=== PATIENT | female | born 1985 | race Caucasian/White ===

== ENCOUNTER 2016-07-20 21:33 | Emergency (ER) | payer MEDICARE, OTHER ==
--- NOTE | ~2016-07-20 | CT71 ---
[facility] A Service [facility] RADIOLOGY TEXT RESULTS PATIENT: JIM REED LOCATION: SED : 85 UNIT #: [id number] AGE: [address]: Barrett Lilly MD SEX: F ORDER DR: [id number] [place] [id number] E MR#: [id number] Acc #: [id number] NAME: JIM REED. : 1985 SEX: F STUDY DATE/TIME: 07/20/2016 21:14 UNIT: SED ROOM: STUDY DESCRIPTION: CT Head Wo Contrast Attending Physician: Barrett Lilly M.D. Ordering Physician: Barrett Lilly M.D. Primary Care Physician: Jimmy Wang M.D. MEDICAL IMAGING REPORT This report is preliminary unless electronic signature is present. EXAM Head CT without contrast. DATE OF EXAM 07/20/2016 HISTORY Confusion. Disoriented. Right facial and eye droop with numbness beginning tonight 20 minutes prior to arrival in the emergency department. TECHNIQUE NOTE: This CT exam was performed with one or more of the following radiation dose reduction techniques: automatic exposure control, adjustment of mA and/or kV according to patient size, and iterative reconstruction. FINDINGS Axial noncontrast images were obtained from the skull base to the vertex. Ventricular size and configuration are normal. There is no evidence of acute infarct or hemorrhage. There are no extra-axial fluid collections. No mass lesion or mass effect is seen. There are no skull fractures. IMPRESSION Normal noncontrast head CT. Dictated by... Karlos Mayorga M.D. [facility] A Service of [facility] RADIOLOGY TEXT RESULTS PATIENT: JIM REED LOCATION: SED : 85 UNIT #: [id number] AGE: [address]: Barrett Lilly MD SEX: F ORDER DR: THIS IS AN ELECTRONICALLY VERIFIED REPORT Karlos Mayorga M.D. at 07/22/2016 2:20 PM TOBI/pili TD: 07/21/2016 16:04 JOB #: [id number] MEDICAL IMAGING REPORT
[~2016-07-20 21:33] MED LIST: ANTIVERT PO; BUSPAR PO; DIFLUCAN100 MG PO; FOLIC ACID; FOLIC ACID PO; IBUPROFEN PO; KLONOPIN PO; LEXAPRO PO; LOPID600 MG; LORTAB 5/500 TA1 TA1 PO; METFORMIN HCL500 M1 PO; NAPROXEN PO; NO MEDICATIONS; PHENERGAN25 M1 PO; PRENATAL1 TA1; PRENATAL1 TA1 PO; PROMETHAZINE HC25 MG PO; PROVERA PO; REQUIP1 MG PO; SEROQUEL PO; ZOFRAN ODT4 MG PO; ZOLOFT
== END 2016-07-20 21:54 | disposition home or self-care (01) ==
LOC: SED 21:33
DX: O99.352 Diseases of the nervous system complicating pregnancy, second trimester (principal); G51.0 Bell's palsy; Q05.9 Spina bifida, unspecified; Z90.89 Acquired absence of other organs; Z98.890 Other specified postprocedural states
CPT/HCPCS: 70450; 99284

== ENCOUNTER 2016-12-03 07:41 | Inpatient (IN) | payer MEDICARE, OTHER ==
[~2016-12-03] VITALS: Ht 170.2 cm; Wt 137.0 kg
--- NOTE | ~2016-12-03 | A ---
[facility] Nutrition Therapy DATE: 12/04/16 Patient: JIM REED Physician: ELIZABETH Address: [address] [facility] Room/Bed: [address] [place] [address], Zip: [place] [address] Admit Date: 12/03/16 Date of : 85 Height: 5 7 Weight: 297 135.17 NUTRITIONAL ASSESSMENT: REASON: 1 nutrition risk point re: /lactating + high BMI documentation 31 y/o female admitted for possible sepsis PMH: depression, self-harm risk, spina bifida, morbid obesity Anthropometrics: ht: 5'7" wt: 297# (135 kg) BMI 46 Labs: Na+ 133, K+ 3.2, Glu 146, BUN 6, Ca++ 8.0, Alb 3.4 Meds: Rocephin, Protonix IV, Lovenox, Dextrose 5%, NaCl I/O & Bowel function: 2455/3. BM 12/02 Skin Integrity: no issues, no edema Diet: Regular Assessment: Chart reviewed, events noted. Pt seen for 1 nutrition risk point re: pregancy/lactating. The pt has had a recent childbirth and is at this time. RD international logistics analyst visited pt at bedside. The pt is currently "pumping and dumping" per MD instructions, due to the antibiotic medications she is taking. She is feeding the baby formula provided by the hospital (baby in room). RD international logistics analyst provided written and verbal diet education regarding increased calorie and protein needs for , as well as taking a multivitamin. Pt reported no questions at this time. RD will remain available. Dx: Obesity class III r/t diet, lifestyle AEB BMI of 46. Intervention: 1. Regular diet. 2. Healthy diet for education Monitoring, Evaluation and Goals: 1. Weight; promote gradual weight loss 2. Oral intake; consume adequate/balanced meals w/no c/o n/v/d Recommendations: 1. Recommend changing current diet to healthy heart to promote gradual weight loss towards a healthy BMI (19.0-25.0). 2. Encourage adequate intake of well-balanced diet per information given to [facility] Nutrition Therapy DATE: 12/04/16 Patient: JIM REED Physician: ELIZABETH Address: [address] [facility] Room/Bed: [facility] [facility], Zip: [place] [address] Admit Date: 12/03/16 Date of : 85 Height: 5 7 Weight: 297 135.17 patient. 3. MVI + minerals for patient while admitted. RD will f/u per protocol as pt is at mild nutritional risk. Respectfully, INES ORDONEZ, Volumetric Weigher Sonal Allison MS, RD, LD [employer] [facility] cc: client file
--- NOTE | ~2016-12-03 | CR63 ---
[facility] A Service of [facility] & [facility] RADIOLOGY TEXT RESULTS PATIENT: JIM REED LOCATION: SED : 85 UNIT #: [id number] AGE: [address]: Geoffrey Forbes MD SEX: F ORDER DR: [id number] [address] [address] [id number] E MR#: [id number] Acc #: [id number] NAME: JIM REED. : 1985 SEX: F STUDY DATE/TIME: 12/03/2016 8:26 UNIT: SED ROOM: STUDY DESCRIPTION: CR Chest 2 View Attending Physician: Geoffrey Forbes M.D. Ordering Physician: Geoffrey Forbes M.D. Primary Care Physician: Jimmy Wang M.D. MEDICAL IMAGING REPORT This report is preliminary unless electronic signature is present. EXAM Chest 12/03/2016 [facility] HISTORY 31-year-old woman, sore throat, cough, elevated temperature, 103 degrees this a.m. COMPARISON: Chest 03/22/2012 FINDINGS Two-view chest demonstrates normal stable heart size. Hilar structures and mediastinal contours are preserved. Bilateral lungs are expanded and clear. Costophrenic angles are preserved. IMPRESSION Negative stable chest. No acute finding. Dictated by... Justin Alexander M.D. THIS IS AN ELECTRONICALLY VERIFIED REPORT Justin Alexander M.D. at 12/03/2016 1:48 PM OSVALDO/iftikhar TD: 12/03/2016 13:18 JOB #: [id number] MEDICAL IMAGING REPORT Page 1 of 1
--- NOTE | ~2016-12-03 | CO ---
Unit #: [id number] #: [id number] Patient: JIM REED [id number] [address] [address] [id number] I MR#: [id number] NAME: JIM REED. ROOM: 563 Age: 31 Sex: F Admission Date: 12/03/2016 : 1985 Attending Physician: Alfreda Hyatt M.D. Primary Care Physician: Jimmy Wang M.D. Consultation Date: 12/04/2016 CONSULTATION REPORT REASON FOR CONSULTATION High fever. HISTORY OF PRESENT ILLNESS The patient is a 31-year-old female, who is 3 weeks , had gestational diabetes, admitted with fever for the last 3 to 4 days up to 103, had some chills, some nausea. No vomiting or diarrhea. Took some Tylenol without any relief. Also started having some pain in the right ear with some muffling of the sound and pain in the right side of the neck on to the right mandible. Also had some nasal congestion. No cough congestion, chest pain, shortness of breath, headaches or dizziness. She was admitted and started on Rocephin and vancomycin. Infectious Disease consultation is requested. PAST MEDICAL HISTORY 1. Spina bifida occulta, mild. 2. Tonsillectomy. 3. LEEP procedure. 4. 3 weeks. SOCIAL HISTORY Noncontributory. FAMILY HISTORY Noncontributory. ALLERGIES No known drug allergies. CURRENT MEDICATIONS Reviewed. Antibiotics include Rocephin and vancomycin. PHYSICAL EXAMINATION GENERAL: Sitting up comfortable, feeling a little bit better. VITAL SIGNS: Temperature 98.4, T-max 103 upon admission, pulse 114, respirations 18, blood pressure 120/56. HEENT: Remarkable for tender right submandibular lymphadenopathy. Throat; she did have some congestion on the right side. Right ear external auditory canal was congested and tympanic membrane also looked congestive without any evidence of perforation. NECK: Supple. CHEST: Clear to auscultation. HEART: Normal S1, S2. ABDOMEN: Soft, nontender. Unit #: [id number] #: [id number] Patient: JIM REED EXTREMITIES: Shows no edema. DIAGNOSTIC STUDIES IMAGING STUDIES: Chest x-ray is negative for acute changes. LABORATORY RESULTS: BUN 10, creatinine 0.7. LFTs normal. Lactic acid 2. WBC 12.2, hemoglobin 12.9, platelets 204. [place] screen and strep screen negative. Urinalysis unremarkable. Cultures are pending. ASSESSMENT 1. Right external otitis. 2. Possible right otitis media. 3. Fever secondary to above. PLAN At this time, I would go ahead and discontinue vancomycin as the MRSA is unlikely. Continue with Rocephin. She does have some diarrhea. Stool has been ordered. We will follow up on that. Further recommendation depending upon the course. I would like to thank Dr. Hyatt for asking us to participate in the care of this patient. We will follow this patient along with you. Dictated by... Kyrie Ch TD: 12/06/2016 01:12 JOB #: [id number] CONSULTATION REPORT Page 1 of 1 X Jacoby Rico MD X CONSULTATION REPORT
--- NOTE | ~2016-12-03 | CT114 ---
[facility] A Service of [facility] RADIOLOGY TEXT RESULTS PATIENT: JIM REED LOCATION: [facility] 5607-11 : 85 UNIT #: [id number] AGE: [address]: Alfreda Hyatt MD SEX: F ORDER DR: [id number] [facility] [address] [facility]. [place], [place] [address] [id number] I MR#: [id number] Acc #: [id number] NAME: JIM REED. : 1985 SEX: F STUDY DATE/TIME: 12/08/2016 16:49 UNIT: [facility] ROOM: [facility] STUDY DESCRIPTION: CT Soft Tissue Neck W Cont Attending Physician: Alfreda Hyatt M.D. Ordering Physician: Alfreda Hyatt M.D. Primary Care Physician: Jimmy Wnag M.D. MEDICAL IMAGING REPORT This report is preliminary unless electronic signature is present EXAM CT neck with contrast INDICATIONS Sore throat particularly on the right since 12/03/2016. Bilateral neck pain. PROCEDURE Contrast-enhanced CT of the neck. This CT exam was performed with one or more of the following radiation dose reduction techniques: Automatic exposure control, adjustment of mA and/or kV according to patient size, and iterative reconstruction. COMPARISON None. FINDINGS Diffuse prominence of the adenoids and lingual tonsil tissues. Prominent cervical lymph nodes in both the right and left neck. Upper cervical node on the right measures 2.4 cm and an upper cervical node on the left measures 3.5 cm. No drainable fluid collection is seen. The parotid, submandibular glands, thyroid gland unremarkable. Included lung apices are clear. No aggressive appearing bone lesion. There is mucosal thickening in the maxillary sinuses and ethmoid air cells. IMPRESSION Bilateral cervical adenopathy, with prominence of the adenoids and lingual tonsil soft tissues. Findings may be reactive. Cannot exclude the possibility of lymphoma. Correlate with clinical presentation and clinical suspicion. Dictated by... [facility] A Service [facility] RADIOLOGY TEXT RESULTS PATIENT: JIM REED LOCATION: [facility] : 85 UNIT #: [id number] AGE: [address]: Alfreda Hyatt MD SEX: F ORDER DR: Jese Wen M.D. THIS IS AN ELECTRONICALLY VERIFIED REPORT Jese Wen M.D. at 12/11/2016 5:01 PM EED/psc TD: 12/09/2016 19:42 JOB #: [id number] MEDICAL IMAGING REPORT Page 1 of 1 COPY
--- NOTE | ~2016-12-03 | DS ---
Unit #: [id number] #: [id number] Patient: ANDRE REED [id number] [address] [place], [place] [address] [id number] I MR#: [id number] NAME: ANDRE REED. ROOM: 563 Age: 31 Sex: F Admission Date: 12/03/2016 : 1985 Discharge Date: 12/11/2016 Attending Physician: Alfreda Hyatt M.D. Primary Care Physician: Jimmy Wang M.D. DISCHARGE SUMMARY FINAL DIAGNOSES 1. High fever which is resolved. 2. Right otitis media. 3. Clostridium difficile infection. 4. Cervical adenopathy, most likely reactive. 5. Skin rash which is resolved. 6. Possible viral syndrome. DISCHARGE MEDICATIONS 1. Vancomycin 250 mg q.6 hourly until 12/20/16. 2. Tylenol 650 q.4 p.r.n. 3. Claritin 10 mg daily. 4. Flonase nasal spray b.i.d. 5. Normal saline nasal spray q.i.d. 6. vitamin, continue home dose. 7. Folic acid, continue home dose. CONSULTATION DURING HOSPITALIZATION Dr. Rico - Infectious Disease. HOSPITAL COURSE Ms. Andre Reed is a 31-year-old, morbidly obese female, who was admitted to [facility] on 12/03/16 with high fever. The patient delivered three weeks prior to coming to hospital. Patient's T-max was 103. Dr. Rico from infectious disease was consulted. Patient was started on IV Rocephin for right otitis media and right external otitis. Patient continued to have fever. Had an episode of diarrhea. Stool was sent. Patient's C. diff is positive. Patient was started on vancomycin. Patient had a rash with Flagyl. That is why it was changed to vancomycin. Patient's antibiotic has been discontinued. Patient is stable at this time. Her fever has resolved and she is feeling much better. Patient is being discharged home in stable condition. EXAMINATION ON DISCHARGE Blood pressure is 124/84, respiratory rate 18, pulse is 78, temperature 98.2. Patient is afebrile for more than 48 hours. HEAD is normocephalic. CHEST has fair air entry. CVS - S1, S2 positive. Regular rhythm. EXTREMITIES - negative edema. DISCHARGE INSTRUCTIONS 1. Patient is being discharged home. 2. Medication as per Med Rec. 3. Follow up with primary care provider in one week. Unit #: [id number] #: [id number] Patient: ANDRE REED 4. Patient has been advised to avoid nursing until antibiotics have been completed. She verbalizes understanding. Dictated by... Alfreda Hyatt M.D. Tenzin TD: 12/12/2016 11:47 JOB #: [id number] DISCHARGE SUMMARY Page 1 of 1 X Alfreda Hyatt MD X DISCHARGE SUMMARY
--- NOTE | ~2016-12-03 | HP ---
Unit #: [id number] #: [id number] Patient: ANDRE REED [id number] [address] [place], [place] [address] [id number] I MR#: [id number] NAME: ANDRE REED. ROOM: 563 Age: 31 Sex: F Admission Date: 12/03/2016 : 1985 Attending Physician: Alfreda Hyatt M.D. Primary Care Physician: Jimmy Wang M.D. HISTORY AND PHYSICAL CHIEF COMPLAINT High fever. HISTORY OF PRESENT ILLNESS Ms. Andre Reed is a 31-year-old female who just had delivery about three weeks ago but started having fever a few days ago and it went up to 103. She was not able to make it go down, even with Tylenol and other medications. She also had right ear tinnitus and some strange kind of sensation with decreased hearing. 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 She also had sore throat and neck swelling, mostly on the right side and also complains of nasal congestion, postnasal drip, and cough with some sputum production. According to her, this right neck, sore throat, and ear pain is pretty bad. She does not complain of nausea and vomiting. Does not complain of abdominal pain. She does not complain of any constipation, diarrhea. No complaint of dysuria. She does have some polyuria. No hematuria. PAST MEDICAL HISTORY History of spina bifida occulta, mild. PAST SURGICAL HISTORY 1. History of tonsillectomy. 2. LEEP procedure. HOME MEDICATIONS 1. vitamin. 2. Folic acid. ALLERGIES No known drug allergies. FAMILY HISTORY Not significant. SOCIAL HISTORY No history of smoking, alcohol, or drug abuse. PHYSICAL EXAMINATION GENERAL: Patient is being evaluated in room 563. VITAL SIGNS: Blood pressure 108/57, respiratory rate 18, pulse 105, temperature 98.3, T-max 103, oxygen saturation 98%. HEENT: Head is normocephalic. Eye movements are normal. Postnasal drainage is seen. Erythema of the throat is seen. Right ear erythematous ear canal and dullness of the tympanic membrane is seen. Unit #: [id number] #: [id number] Patient: ANDRE REED CHEST: Fair air entry. No additional sounds. CARDIOVASCULAR: S1, S2 positive. Regular rhythm. Tachycardia. ABDOMEN: Soft, no tenderness. EXTREMITIES: Negative edema. CENTRAL NERVOUS SYSTEM: The patient is awake, alert. Oriented x3. No focal neurological deficit. DIAGNOSTIC STUDIES LABORATORY: Strep throat is negative. WBC 12.2, hemoglobin 12.9, hematocrit 38.8, and platelet count of 204,000. Urinalysis shows 1+ bacteria. Lactic acid is 2. Sodium 134, potassium 4.3, chloride 104, sugar 159, BUN 10, creatinine 0.7. Liver enzymes are stable. Strep A was done which is negative. Infectious mononucleosis test was negative. WBC this morning is 11.3. IMAGING: Chest x-ray, PA and lateral, shows negative stable chest. No acute finding. ASSESSMENT The patient is being admitted to telemetry unit with a diagnosis of: 1. Possible sepsis. 2. Right otitis media. 3. Pharyngitis. 4. High fever. 5. Urinary tract infection. 6. Allergic rhinitis. PLAN Plan is admit to telemetry unit. Dr. Rico from infectious disease is being consulted. Patient is being started on IV Rocephin 1 g q.24 hours. She received 2 g of Rocephin in the ER. IV vancomycin was started, which has been discontinued. Protonix is being started. D5 normal saline at 125 mL/hr is being started. Deep venous thrombosis prophylaxis will be done. Normal saline nasal spray two squirts each nostril q.i.d., Flonase nasal spray twice a day, Claritin 10 mg daily. Patient does have hypokalemia. Potassium will be replaced. Plan of care has been discussed with patient at length. Please refer to progress note for further orders. Dictated by Kyrie Sotomayor TD: 12/04/2016 13:52 JOB #: [id number] Unit #: [id number] #: [id number] Patient: ANDRE REED HISTORY AND PHYSICAL Page 1 of 1 X Alfreda Hyatt MD HISTORY AND PHYSICAL
--- NOTE | ~2016-12-03 | CT71 ---
[facility] A Service of [facility] & [facility] RADIOLOGY TEXT RESULTS PATIENT: JIM REED LOCATION: [facility] 5607-11 : 85 UNIT #: [id number] AGE: [address]: Alfreda Hyatt MD SEX: F ORDER DR: [id number] [facility] [address] [place], [place] [address] [id number] I MR#: [id number] Acc #: [id number] NAME: JIM REED. : 1985 SEX: F STUDY DATE/TIME: 12/10/2016 3:48 UNIT: [facility] ROOM: [facility] STUDY DESCRIPTION: CT Head Wo Contrast Attending Physician: Alfreda Hyatt M.D. Ordering Physician: Jj Rodriguez M.D. Primary Care Physician: Jimmy Wang M.D. MEDICAL IMAGING REPORT This report is preliminary unless electronic signature is present EXAM CT head without contrast DATE: 12/10/2016 at 03:48 HISTORY 31-year-old female 3 weeks . Woke up with extreme right side head and neck pain this morning. Admitted 12/03/2016 with fever ad otitis. . COMPARISON CT head without contrast 07/20/2016. The CT exam was performed with one or more of the following radiation dose reduction techniques: automatic exposure control, adjustment of mA and/or kV according to patient size, and iterative reconstruction. FINDINGS Mild ethmoid sinus mucosal thickening. Mastoid air cells are clear. No acute calvarial abnormality. No acute intracranial hemorrhage, mass lesion, mass effect or midline shift is seen and there is no CT evidence of acute or evolving infarct. Ventricular configuration is normal. IMPRESSION Normal noncontrast CT head. Dictated by... Tila Trejo M.D. THIS IS AN ELECTRONICALLY VERIFIED REPORT [facility] A Service of [facility] & [facility] RADIOLOGY TEXT RESULTS PATIENT: JIM REED LOCATION: [facility] 5607-11 : [birth year] UNIT #: [id number] AGE: [address]: Alfreda Hyatt MD SEX: F ORDER DR: Tila Trejo M.D. at 12/10/2016 9:58 PM Barney/iftikhar TD: 12/10/2016 11:19 JOB #: [id number] MEDICAL IMAGING REPORT Page 1 of 1 COPY
[2016-12-03 08:29] LABS: BASOPHIL# 0.1 X10e3 (0-0.3); BASOPHIL% 0.5 % (0-2.5); EOSINOPHIL# 0.1 X10e3 (0-0.7); EOSINOPHIL% 0.8 % (0.0-7.0); HEMATOCRIT 38.8 % (35.0-45.0); HEMOGLOBIN 12.9 gm/dL (12.0-16.0); LYMPHOCYTE# 0.9 X10e3 (1.0-3.5); LYMPHOCYTE% 7.4 % (17.0-45.0); MEAN CELL VOLUME 79.8 FL (83-96); MEAN CORPUSCULAR HEMOGLOBIN 26.6 PG (28-34); MEAN CORPUSCULAR HGB CONC 33.3 g/dL (30-36); MONOCYTE# 0.6 X10e3 (0-1.0); MONOCYTE% 5.1 % (3.0-12.0); NEUTROPHIL# 10.5 X10e3 (1.5-7.1); NEUTROPHIL% 86.2 % (40-75); PLATELET COUNT 204 X10e3 (140-420); RED BLOOD COUNT 4.87 X10e (3.90-5.30); RED CELL DISTRIBUTION WIDTH 15.3 % (11.0-15.5); WHITE BLOOD COUNT 12.2 X10e3 (4.0-10.5)
[2016-12-03 08:36] LABS: DIFF IND NO
[2016-12-03 08:37] LABS: URINE SOURCE CLEAN CATCH
[2016-12-03 08:38] LABS: URINE APPEARANCE CLEAR; URINE BILIRUBIN NEG (NEG); URINE BLOOD 2+ (NEG); URINE COLOR YELLOW; URINE GLUCOSE NEG (NORM); URINE KETONE NEG (NEG); URINE LEUKOCYTE ESTERASE 1+ (NEG); URINE NITRATE NEG (NEG); URINE PH 5.5 (5-8); URINE PROTEIN NEG (NEG); URINE UROBILINOGEN 0.2 MG/DL (NORM)
[2016-12-03 08:39] LABS: MICRO INDICATED? YES
[2016-12-03 08:50] LABS: ALBUMIN SERUM 3.4 g/dL (3.5-5.0); BILIRUBIN, DIRECT 0.1 mg/dL (0.0-0.2); BILIRUBIN,INDIRECT 0.7 mg/dL (0.0-0.9); BILIRUBIN,TOTAL 0.8 mg/dL (0.2-2.0); BUN/CREATININE RATIO 14.28; CALCIUM SERUM 8.5 mg/dL (8.4-10.2); CREATININE SERUM 0.7 mg/dL (0.6-1.4); GLOM FILT RATE Estimated 115.5 mL/min (>60); POTASSIUM 4.3 mmol/L (3.5-5.1); PROTEIN TOTAL SERUM 7.3 g/dL (6.0-8.3)
[2016-12-03 08:58] LABS: CULTURE INDICATED? YES; URINE BACTERIA 1+ (NEG); URINE SQUAMOUS EPITHELIAL CELL OCCAS /[HPF]
[2016-12-03] MEDS ORDERED: REGLAN10 MG PO (16:21)
[2016-12-04 06:46] LABS: HEMATOCRIT 35.5 % (35.0-45.0); HEMOGLOBIN 11.2 gm/dL (12.0-16.0); MEAN CELL VOLUME 79.8 FL (83-96); MEAN CORPUSCULAR HEMOGLOBIN 25.2 PG (28-34); MEAN CORPUSCULAR HGB CONC 31.6 g/dL (30-36); MEAN PLATELET VOLUME 9.1 FL (6.5-11.5); RED BLOOD COUNT 4.45 X10e (3.90-5.30); RED CELL DISTRIBUTION WIDTH 15.5 % (11.0-15.5); WHITE BLOOD COUNT 11.3 X10e3 (4.0-10.5)
[2016-12-04 07:13] LABS: CREATININE SERUM 0.6 mg/dL (0.6-1.4); GLOM FILT RATE Estimated 121.5 mL/min (>60); POTASSIUM 3.2 mmol/L (3.5-5.1)
[2016-12-05 05:38] LABS: HEMATOCRIT 35.9 % (35.0-45.0); HEMOGLOBIN 11.8 gm/dL (12.0-16.0); MEAN CORPUSCULAR HEMOGLOBIN 26.3 PG (28-34); MEAN CORPUSCULAR HGB CONC 32.8 g/dL (30-36); MEAN PLATELET VOLUME 8.9 FL (6.5-11.5); RED BLOOD COUNT 4.49 X10e (3.90-5.30); RED CELL DISTRIBUTION WIDTH 15.7 % (11.0-15.5)
[2016-12-05 06:20] LABS: CALCIUM SERUM 8.4 mg/dL (8.4-10.2); CARBON DIOXIDE 24 mmol/L (22-31); CHLORIDE 103 mmol/L (100-111); CREATININE SERUM 0.6 mg/dL (0.6-1.4); GLOM FILT RATE Estimated 121.5 mL/min (>60); GLUCOSE FASTING 117 mg/dL (70-110); POTASSIUM 4.2 mmol/L (3.5-5.1); SODIUM 135 mmol/L (135-145)
[2016-12-05 06:23] LABS: BLOOD UREA NITROGEN <5 mg/dL (9-23); BUN/CREATININE RATIO 8.33
[2016-12-07 11:11] LABS: HEMATOCRIT 31.2 % (35.0-45.0); HEMOGLOBIN 10.2 gm/dL (12.0-16.0); MEAN CELL VOLUME 79.7 FL (83-96); MEAN CORPUSCULAR HEMOGLOBIN 26.1 PG (28-34); MEAN CORPUSCULAR HGB CONC 32.8 g/dL (30-36); MEAN PLATELET VOLUME 8.2 FL (6.5-11.5); RED BLOOD COUNT 3.92 X10e (3.90-5.30); RED CELL DISTRIBUTION WIDTH 15.5 % (11.0-15.5); WHITE BLOOD COUNT 6.8 X10e3 (4.0-10.5)
[2016-12-07 15:56] LABS: INFLUENZA A NEG (NEG); INFLUENZA B NEG (NEG)
[2016-12-08 07:11] LABS: HEMATOCRIT 32.2 % (35.0-45.0); HEMOGLOBIN 10.3 gm/dL (12.0-16.0); MEAN CELL VOLUME 80.5 FL (83-96); MEAN CORPUSCULAR HEMOGLOBIN 25.7 PG (28-34); MEAN CORPUSCULAR HGB CONC 31.9 g/dL (30-36); RED CELL DISTRIBUTION WIDTH 15.5 % (11.0-15.5); WHITE BLOOD COUNT 7.7 X10e3 (4.0-10.5)
[2016-12-08 07:59] LABS: CALCIUM SERUM 7.7 mg/dL (8.4-10.2); CREATININE SERUM 0.5 mg/dL (0.6-1.4); POTASSIUM 3.3 mmol/L (3.5-5.1)
[2016-12-08 12:10] LABS: ALBUMIN SERUM 2.3 g/dL (3.5-5.0); CALCIUM SERUM 7.8 mg/dL (8.4-10.2); CARBON DIOXIDE 26 mmol/L (22-31); CHLORIDE 104 mmol/L (100-111); CREATININE SERUM 0.5 mg/dL (0.6-1.4); GLUCOSE FASTING 115 mg/dL (70-110); PHOSPHOROUS 3.8 mg/dL (2.5-4.6); POTASSIUM 3.6 mmol/L (3.5-5.1); SODIUM 137 mmol/L (135-145)
[2016-12-08 12:11] LABS: BLOOD UREA NITROGEN <5 mg/dL (9-23)
[2016-12-09 06:27] LABS: HEMOGLOBIN 11.1 gm/dL (12.0-16.0); MEAN CELL VOLUME 81.3 FL (83-96); MEAN CORPUSCULAR HEMOGLOBIN 25.7 PG (28-34); MEAN CORPUSCULAR HGB CONC 31.7 g/dL (30-36); RED BLOOD COUNT 4.31 X10e (3.90-5.30); RED CELL DISTRIBUTION WIDTH 15.3 % (11.0-15.5); WHITE BLOOD COUNT 7.8 X10e3 (4.0-10.5)
[2016-12-09 07:57] LABS: ALBUMIN SERUM 2.7 g/dL (3.5-5.0); BILIRUBIN,TOTAL 0.8 mg/dL (0.2-2.0); CALCIUM SERUM 8.3 mg/dL (8.4-10.2); CREATININE SERUM 0.4 mg/dL (0.6-1.4); GLOM FILT RATE Estimated 138.8 mL/min (>60); POTASSIUM 3.8 mmol/L (3.5-5.1); PROTEIN TOTAL SERUM 6.8 g/dL (6.0-8.3)
[2016-12-11 06:57] LABS: CALCIUM SERUM 8.1 mg/dL (8.4-10.2); CREATININE SERUM 0.5 mg/dL (0.6-1.4)
[2016-12-11] MEDS ORDERED: ACETAMINOPHEN650 M3 PO (15:07)
[2016-12-11] MEDS ORDERED: VANCOMYCIN PO (15:10)
[2016-12-11] MEDS ORDERED: FLONASE 0.05% N16 GM (15:15)
[2016-12-11] MEDS ORDERED: CLARITIN10 M2 PO (15:15)
[2016-12-13 22:02] LABS: ANA SCREEN Negative (Negative)
== END 2016-12-11 15:53 | disposition home or self-care (01) | DRG 776 ==
LOC: SED 07:41 → C5C 09:36 → SED 09:36 → C5C 09:39
PROVIDERS: Emergency Medicine; Hospitalist; Physician Assistant Medical
DX: O85 Puerperal sepsis (principal); A04.7 Enterocolitis due to Clostridium difficile; Z68.42 Body mass index [BMI] 45.0-49.9, adult; O98.53 Other viral diseases complicating the puerperium; E66.01 Morbid (severe) obesity due to excess calories; E87.6 Hypokalemia; J30.9 Allergic rhinitis, unspecified; J02.9 Acute pharyngitis, unspecified; B34.9 Viral infection, unspecified; L27.0 Generalized skin eruption due to drugs and medicaments taken internally; T37.3X5A Adverse effect of other antiprotozoal drugs, initial encounter; Y92.9 Unspecified place or not applicable; R59.9 Enlarged lymph nodes, unspecified; H66.91 Otitis media, unspecified, right ear; H60.91 Unspecified otitis externa, right ear; O99.215 Obesity complicating the puerperium
CPT/HCPCS: 36415; 70450; 70491; 71020; 80048; 80053; 80069; 80076; 81003; 82308; 83605; 85025; 85027; 85652; 86038; 86039; 86140; 86308; 87040; 87086; 87493; 87651; 87804; 96361; 96365; 99291; C9113; J0696; J1650; J1885; J3370; Q9967